=== PATIENT | female | born 1975 | race Two or more races ===

== ENCOUNTER 2024-08-13 09:33 | Outpatient (RCR) | payer BC, SELFPAY | END 2024-09-10 23:59 | disposition home or self-care (01) | LOC: SCTC 09:33 | PROVIDERS: PCP Internal Medicine; Referring Provider Internal Medicine; Visit Provider Nurse Practitioner Family | DX: Z08 Encounter for follow-up examination after completed treatment for malignant neoplasm (principal); Z85.42 Personal history of malignant neoplasm of other parts of uterus; Z90.710 Acquired absence of both cervix and uterus; Z90.722 Acquired absence of ovaries, bilateral; Z92.3 Personal history of irradiation; Z92.21 Personal history of antineoplastic chemotherapy; I10 Essential (primary) hypertension; R91.1 Solitary pulmonary nodule; Z15.01 Genetic susceptibility to malignant neoplasm of breast; Z15.09 Genetic susceptibility to other malignant neoplasm | CPT/HCPCS: 99212; G0463 ==

== ENCOUNTER 2024-10-22 10:32 | Outpatient (RCR) | payer BC, SELFPAY ==
--- NOTE | 2024-10-22 13:01 | CTCFLWUP_ITS ---
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 lisinopril - 10 mg Daily Medications Last Reconciled by Do Covington RN on 10/22/2024 ALLERGIES: No Known Drug Allergies REVIEW OF SYSTEMS: A complete 14-point review of systems was performed and is negative except as noted in interval history. PHYSICAL EXAMINATION: VITAL SIGNS: Temperature?98.8, B/P?123/84, Oxygen?Saturation?98% Weight?200?lbs PAIN: 0 - No pain GENERAL APPEARANCE: Appears well, in no apparent distress, appropriately interactive. HEENT: Normocephalic, no temporal wasting, normal conjunctiva, no scleral icterus, normal hearing, lips without lesions, neck normal range of motion. CARDIOVASCULAR: Not assessed. PULMONARY: Normal respiratory effort, no respiratory distress or use of accessory muscles, speaking in full sentences, no tachypnea. EXTREMITIES: No pedal edema or cyanosis. SKIN: Normal skin appearance. NEUROLOGIC: Alert and oriented x4. PSHYCHIATRIC: Appropriate affect, mood normal, behavior normal, intact thought and speech. 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 S/p total hysterectomy, bilateral salpingectomy, right ovarian cystectomy and retroperitoneal lymphadenectomy and peritoneal washings (10/27/2021) Completed 6 cycles of adju vant carboplatin and Taxol on 05/11/2022. 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 Bilateral breast MRI, benign findings (12/21/2023). Bilateral mammogram screening, left breast negative screening, right breast biopsy recommended, (01/10/2024). Right breast diagnostic mammogram, benign findings, return to routine mammographic surveillance, (01/16/2024). CT chest abdomen and pelvis with contrast showed stable 2 mm pulmonary nodule right lower lobe, no metastatic disease in chest abdomen or pelvis, 02/15/2024. Following up with Dr. Ammy Patino, [employer]CH[employer]IC oncology for discussion of a risk reducing bilateral oophorectomy, 03/26/2024, next follow-up is in September 2024, does not have appointment, will call and schedule self. Patient aware that annual breast MRI and annual mammogram are recommended interventions for cancer screening due to PALB2 associated cancers. Colonoscopy screening every 5 years due to MUTYH gene mutations. Ms. Chavis denies any complaints or concerns during today's visit. No clinical evidence of recurrence. Labs prior to next follow-up including CBC CMP CEA and CA125. GI referral for colonoscopy screening, previous referral History of hypertension Continue following up with PCP for management Will get ct scan chest abdomen and pelvis to evaluate for recurrence ORDERS: Ct chest abdomen and pelvis with contrast Colonoscopy Mammogram RETURN TO CLINIC: 2months BILLING AND COMPLIANCE: I reviewed external records from providers outside my specialty as summarized above. I spent a total of 50 minutes on this patient?s care on the day of their visit excluding time spent related to any billed procedures. This time includes time spent with the patient as well as time spent documenting in the medical record, reviewing patients records and tests, obtaining history, placing orders, communicating with other healthcare professionals, counseling the patient, family or caregiver, and/or care coordination for the diagnoses above. Electronically Signed by: Sylvester Butler MD T: 12:59 PM CC: Onofre?Bindu?, Tamir?Larissa? PCP: Janet Vincent Referring: Janet Vincent This document was completed utilizing speech recognition software. Grammatical errors, random word insertions, pronoun errors, and incomplete sentences are an occasional consequence of this system due to software limitations, ambient noise, and hardware issues. Any formal questions or concerns about the content, text or information contained within the body of this dictation should be directly addressed to the provider for clarification.
== END 2024-11-08 23:59 | disposition home or self-care (01) ==
LOC: SCTC 10:32
PROVIDERS: PCP Internal Medicine; Referring Provider Internal Medicine; Visit Provider Internal Medicine Hematology & Oncology
DX: Z08 Encounter for follow-up examination after completed treatment for malignant neoplasm (principal); Z85.42 Personal history of malignant neoplasm of other parts of uterus; Z90.710 Acquired absence of both cervix and uterus; Z90.722 Acquired absence of ovaries, bilateral; Z92.21 Personal history of antineoplastic chemotherapy; Z92.3 Personal history of irradiation
CPT/HCPCS: 99212; G0463

== ENCOUNTER → 2024-11-07 | Outpatient (CLI) | payer BC, SELFPAY ==
--- NOTE | 2024-11-07 13:30 | XR_ITS ---
Examination: CT chest with intravenous contrast CT abdomen with intravenous contrast CT pelvis with intravenous contrast 2-D coronal and sagittal reconstructions Time of exam: November 07, 2024 1344 hrs. Indications: Diagnosis malignant neoplasm uterus 2021, restaging, history 2 mm pulmonary nodule right lower lobe on CT chest February 15, 2024 CTDI: vol (mGy) : 10.2 DLP: (mGycm): 732 Technique: Multiple axial images of the chest, abdomen and pelvis with intravenous contrast, 3.0 mm slice thickness. Images obtained post intravenous injection Isovue 370 60 cc. 2-D sagittal and coronal reconstructions. Low dose protocols were performed. One or more of the following dose reduction techniques were used; automated exposure control, adjustment of the mA and/or KV according to patient size, use of iterative reconstruction technique. Findings: No thoracic aortic aneurysm dilatation Pulmonary artery segments are not enlarged. No paratracheal tracheobronchial or bronchopulmonary adenopathy Pulmonary nodule posterior right lung measures 3.8 mm compared to 2.8 mm on February 15, 2024 No new pulmonary nodules No pneumonia or pulmonary edema Fatty infiltration throughout the liver no focal liver or splenic lesions No gallstones No pancreatic or adrenal mass No renal or ureteral calculi, no hydronephrosis Normal appendix No bowel obstruction No abdominal or pelvic lymphadenopathy Urinary bladder intact Moderate osteopenia Impression: Pulmonary nodule posterior right lung measures 3.8 mm compared to 2.8 mm on February 15, 2024, no new pulmonary nodules With this study as baseline suggest continued 6 month follow-up CT chest without contrast No interval metastatic disease in the abdomen or pelvis
== END | disposition home or self-care (01) ==
LOC: CCTX 13:23
PROVIDERS: PCP Internal Medicine; Referring Provider Internal Medicine Hematology & Oncology; Visit Provider Internal Medicine Hematology & Oncology
DX: R91.1 Solitary pulmonary nodule (principal); C55 Malignant neoplasm of uterus, part unspecified
CPT/HCPCS: 71260; 74177; A4649; Q9967

== ENCOUNTER → 2024-11-15 | Outpatient (CLI) | payer BC, SELFPAY ==
--- NOTE | 2024-11-15 13:04 | XR_ITS ---
Examination: PA lateral chest 2 views TECHNIQUE: Upright PA lateral chest 2 views Exam date and time: November 15, 2024 1318 hours INDICATIONS: Preop FINDINGS: Normal heart size. Lungs are clear. The osseous structures are intact IMPRESSION: No active disease
[2024-11-15 13:09] LABS: Basophils % (Auto) 0 % (0-2.5); Eosinophils # (Auto) 0.1 Thou/mm3 (0.0-0.5); Eosinophils % (Auto) 1 % (0-10); Hematocrit 40.9 % (36.0-46.0); Hemoglobin 13.7 g/dL (12.0-16.0); Immature Granulocytes % (Auto) 0 % (0-0); Immature Granulocytes Auto 0.01 Thou/mm3 (0.00-0.00); Lymphocytes # (Auto) 1.7 Thou/mm3 (1.0-4.8); Lymphocytes % (Auto) 28 % (10-50); Mean Corpuscular HGB Conc 33.5 g/dl (31.0-37.0); Mean Corpuscular Hemoglobin 28.7 pg (25.0-35.0); Mean Corpuscular Volume 86 fL (80-100); Monocytes # (Auto) 0.3 Thou/mm3 (0.0-0.8); Monocytes % (Auto) 6 % (0-12); Neutrophils # (Auto) 3.9 Thou/mm3 (1.8-7.7); Neutrophils % (Auto) 65 % (37-80); Nucleated Red Blood Cell % 0 /100 WBC (0); Platelet Count 200 Thou/mm3 (140-440); RDW Standard Deviation 41.3 fL (36.4-46.3); Red Blood Count 4.77 Miln/mm3 (4.00-5.20)
[2024-11-15 13:23] LABS: Glucose Estimated Average 114 mg/dL (80-131); Hemoglobin A1C 5.6 % Hgb (4.8-6.0)
[2024-11-15 13:31] LABS: Alanine Aminotransferase 28 U/L (10-49); Albumin, Serum 4.2 gm/dL (3.5-5.0); Albumin/Globulin Ratio 1.5 (1.2-2.2); Alkaline Phosphatase 87 U/L (46-116); Anion Gap 6 (7-16); Aspartate Amino Transferase 21 U/L (0-34); BUN/Creatinine Ratio 21 Ratio (12-20); Bilirubin,Total 0.6 mg/dL (0.3-1.2); Blood Urea Nitrogen 15 mg/dL (9-23); Calcium 9.6 mg/dL (8.3-10.6); Calcium (Corrected) 9.6 mg/dL (8.5-10.1); Carbon Dioxide 30.8 mMol/L (20.0-31.0); Chloride 105 mMol/L (98-107); Creatinine (Component) 0.7 mg/dL (0.6-1.3); Globulin 2.8 gm/dL (2.3-3.5); Glucose 96 mg/dL (74-106); Osmolality,Calculated 283 (275-295); Potassium 4.2 mMol/L (3.4-5.1); Sodium 142 mMol/L (136-145); eGFR > 60 See Note
--- NOTE | 2024-11-15 13:40 | EKG_ITS ---
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
== END | disposition home or self-care (01) ==
PROVIDERS: PCP Nurse Practitioner Family; Referring Provider Nurse Practitioner Family; Visit Provider Radiology Diagnostic Radiology
DX: Z01.818 Encounter for other preprocedural examination (principal)
CPT/HCPCS: 36415; 71046; 80053; 83036; 85025; 86900; 86901; 93005

== ENCOUNTER → 2024-11-19 | Outpatient (CLI) | payer BC, SELFPAY ==
--- NOTE | 2024-11-19 10:15 | XR_ITS ---
Examination: Diagnostic digital mammography, bilateral Computer aided detection 3-D breast Tomosynthesis, bilateral Date and time of exam: 11/19/2024, 10:09 AM Comparisons: 2021 through January 2024 Indications:Surveillance Technique: Nonmagnified MLO, CC views of the breasts to been obtained, reconstructed from 3-D Tomosynthesis images. R2 computer aided detection program utilized for evaluation of suspicious masses and/or abnormal calcifications. 3-D Tomosynthesis images obtained. Findings: There are scattered areas of fibroglandular density. No evidence of abnormal masses or suspicious calcifications. Stable benign-appearing calcifications medial right breast Impression: BI-RADS category 2: Benign findings Recommend 1 year follow-up mammogram
== END | disposition home or self-care (01) ==
LOC: CDIM 09:54
PROVIDERS: Referring Provider Internal Medicine Hematology & Oncology; Visit Provider Internal Medicine Hematology & Oncology
DX: R92.323 Mammographic fibroglandular density, bilateral breasts (principal); R92.1 Mammographic calcification found on diagnostic imaging of breast; C55 Malignant neoplasm of uterus, part unspecified
CPT/HCPCS: 77062; 77066; G0279

== ENCOUNTER 2024-12-04 08:24 | Outpatient (RCR) | payer BC, SELFPAY ==
--- NOTE | 2024-12-04 09:12 | CTCFLWUP_ITS ---
Shemar Machado [facility] [address] [place], [place] [address] FOLLOW-UP NOTE Date: 12/04/2024 MR#: [id number] Name: ELISE CHAVIS : 1975 Dx: C55 Malignant neoplasm of uterus, part unspecified Identification. Patient with stage III C2 (pT1a loss of expression ER/FL receptor positive grade 1 endometrial CA uterus. Had total hysterectomy bilateral salpingectomy l right ovarian cystectomy retroperitoneal lymphadenectomy and peritoneal washings 10/27/2021. 6 cycles of adjuvant chemo carboplatin Taxol 01/26/2022 through 05/11/2022. XRT to pelvis 07/06/2022 through 06/17/2022. 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 CT chest abdomen pelvis 11/07/2024 right posterior lung nodule 3.8 mm compared to 2.8 mm of February 15, 2024. 6-month follow-up CT chest recommended. Mammogram 11/19/2024 BI-RADS category two 1 year follow-up recommended. CEA 1.1 CA125 5.4 on 10/15/2024 Patient had pelvic last month performed by MACHINE WORKER onc which was unremarkable according to patient. A#1. Stage III C2 endometrial carcinoma uterus with loss of expression. PALB2 as well as MUTYH past mutations positive. A#2. Total hysterectomy bilateral salpingectomy right ovarian cystectomy retroperitoneal lymphadenectomy peritoneal washings 10/27/2021. [facility] A#3. Postop chemoradiation completed 2021 [facility] A#4. Radiographically, biochemically and on pelvic exam performed last month in [place] no sign of recurrence thus far. A#5. Scheduled for prophylactic oophorectomy next month in [place]. A#6, Has follow-ups with MELISSA Manuel and Dr. Butler. A#7. I will see her again in 6 months. Cc:*Janet Vincent MD . Electronically signed by: Tamir Dias M.D. 12/04/2024 9:09 AM
== END 2024-12-09 23:59 | disposition home or self-care (01) ==
LOC: SCTC 08:24
PROVIDERS: PCP Internal Medicine; Referring Provider Radiology Therapeutic Radiology; Visit Provider Radiology Therapeutic Radiology
DX: C54.1 Malignant neoplasm of endometrium (principal); Z90.710 Acquired absence of both cervix and uterus; Z90.722 Acquired absence of ovaries, bilateral; Z92.21 Personal history of antineoplastic chemotherapy; Z92.3 Personal history of irradiation; Z15.09 Genetic susceptibility to other malignant neoplasm
CPT/HCPCS: 99212; G0463

== ENCOUNTER 2025-01-08 11:01 | Outpatient (RCR) | payer BC, SELFPAY ==
--- NOTE | 2025-01-14 11:14 | CTCFLWUP_ITS ---
Patient: ELISE CHAVIS : 1975 Page 2 of 2 FOLLOW UP NOTE DATE OF SERVICE: 01/08/2025 NAME: ELISE CHAVIS ACCOUNT: [id number] : 1975 AGE: 49 INTERVAL HISTORY: Visit summary Jordan Ramirez, a female with stage 2, C2, loss of expression, ERP receptor positive, grade one endometrial cancer, presented for follow-up after unsuccessful robotic ovarian removal surgery. Her history includes total hysterectomy, bilateral salpingo-oophorectomy, right ovarian cystadenectomy, retroperitoneal lymphadenectomy, peritoneal washing, and 6 cycles of TCE with radiation therapy in 2021. A small lung nodule was identified on CT scan. Management plan includes Fernando testing for circulating cancer cells, PET-CT scan in April to evaluate the lung nodule and assess for metastatic disease, colonoscopy for cancer screening, and follow-up after her breast surgical consultation in February. Chief Complaint Follow-up for endometrial cancer treatment, recent robotic surgery for ovaries, tiny lung nodule found on CT scan History of Present Illness Jordan Ramirez is a patient with a history of stage 2, C2, loss of expression, ERP receptor positive, grade one endometrial cancer, presenting for follow-up after recent robotic surgery for ovarian removal and to discuss ongoing cancer management. The patient reports having undergone robotic surgery for ovary removal last week. However, Dr. Espinal was unable to remove the ovaries due to the tissue being too hard, possibly from previous radiation therapy. The patient mentions that there are currently no signs of cancer. She has a pre-operative appointment scheduled in two weeks, where Dr. Espinal will provide further information about the possibility of ovary removal. The patient also discusses her treatment history, including a total hysterectomy, bilateral salpingo-oophorectomy, right ovarian cystadenectomy, retroperitoneal lymphadenectomy, and peritoneal washing. In 2021, she completed 6 cycles of TCE and radiation therapy. She notes that her left ovary is the only one remaining inside, as the right ovary had a cyst removed previously. The patient expresses concern about a bad gene and the need for a colonoscopy. Additionally, the patient mentions an upcoming permit in February with a surgeon for her breast, as well as a consultation scheduled for late February. She is aware of a small lung nodule that was discovered on a previous CT scan, which could be related to pneumonia or a cough. The patient understands that a PET scan is planned for April to assess her entire body for any signs of cancer. Medical History - Stage 2, C2, loss of expression, ERP receptor positive, grade one endometrial cancer - Small lung nodule Surgical History - Total hysterectomy, bilateral salpingo-oophorectomy, right ovarian cystadenectomy, retroperitoneal lymphadenectomy, and peritoneal washing for endometrial cancer - Robotic surgery for ovaries (last week) - Right ovarian cyst removal (prior to cancer diagnosis) Medications and Supplements - TCE - 6 cycles in 2021 Laboratory, Imaging, and Diagnostic Test Results - CT scan: Small lung nodule detected - PET-CT scan: Pending (scheduled for April) ONCOLOGY HISTORY: DIAGNOSIS: Malignant neoplasm of uterus, part unspecified [ICD10] C55 Stage III C2 (pT1a, pN2a), MSH?6 loss of expression, ER positive, VA positive, 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 lisinopril - 10 mg Daily Medications Last Reconciled by Sweetie Sanon MA on 01/08/2025 ALLERGIES: No Known Drug Allergies REVIEW OF SYSTEMS: A complete 14-point review of systems was performed and is negative except as noted in interval history. PHYSICAL EXAMINATION: VITAL SIGNS: Temperature?99.3, B/P?125/85, Oxygen?Saturation?97% PAIN: 0 - No pain GENERAL APPEARANCE: Appears well, in no apparent distress, appropriately interactive. HEENT: Normocephalic, no temporal wasting, normal conjunctiva, no scleral icterus, normal hearing, lips without lesions, neck normal range of motion. CARDIOVASCULAR: Not assessed. PULMONARY: Normal respiratory effort, no respiratory distress or use of accessory muscles, speaking in full sentences, no tachypnea. EXTREMITIES: No pedal edema or cyanosis. SKIN: Normal skin appearance. NEUROLOGIC: Alert and oriented x4. PSHYCHIATRIC: Appropriate affect, mood normal, behavior normal, intact thought and speech. LABORATORY DATA: I have personally reviewed and interpreted each of the patient?s relevant lab tests, abnormal findings are below: Date 08/30/22 11/15/24 ??WHITE?BLOOD?COUNT?(Thou/mm3) 4.3 6.0 ??RED?BLOOD?COUNT?(Miln/mm3) 4.15 4.77 ??HEMOGLOBIN?(gm/dl) 12.4 13.7 ??HEMATOCRIT?(%) 37.1 40.9 ??PLATELET?COUNT?(Thou/mm3) 157 200 ??NEUTROPHILS?%,?AUTO?(%) 72 65 ??LYMPH?%,?AUTO?(%) 18 28 ??NEUTROPHILS,?AUTO?(Thou/mm3) 3.1 3.9 ??GLUCOSE,RANDOM?(mg/dL) 131?H 96 ??BLOOD?UREA?NITROGEN?(mg/dL) 14 15 ??CREATININE?(mg/dL) 0.70 0.70 ??SODIUM?(mmol/L) 141 142 ??POTASSIUM?(mmol/L) 3.6 4.2 ??CHLORIDE?(mmol/L) 104 105 ??CrCl?(CandG)?(ml/min) 147.32 107.83 ??AST/SGOT?(Unit/L) 38?H 21 ??ALT/SGPT?(Unit/L) 60?H 28 ??ALKALINE?PHOSPHATASE?(Unit/L) 71 87 ??BILIRUBIN,?TOTAL?(mg/dL) 0.4 0.6 ??PROTEIN?TOTAL?(gm/dl) 7.3 7.0 ??ALBUMIN,?SERUM?(gm/dl) 4.4 4.2 ??GLOBULIN?(gm/dl) 2.9 2.8 ??ALBUMIN/GLOBULIN?RATIO 1.5 1.5 ??CALCIUM,?SERUM?(mg/dL) 9.6 9.6 ??CALCIUM?SERUM?(CORRECTED)?(mg/dL) 9.6 9.6 ASSESSMENT/PLAN: Stage III C2 (pT1a, pN2a), MSH?6 loss of expression, ER positive, VA positive, 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 S/p total hysterectomy, bilateral salpingectomy, right ovarian cystectomy and retroperitoneal lymphadenectomy and peritoneal washings (10/27/2021) Completed 6 cycles of adjuv ant carboplatin and Taxol on 05/11/2022. 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 Bilateral breast MRI, benign findings (12/21/2023). Bilateral mammogram screening, left breast negative screening, right breast biopsy recommended, (01/10/2024). Right breast diagnostic mammogram, benign findings, return to routine mammographic surveillance, (01/16/2024). CT chest abdomen and pelvis with contrast showed stable 2 mm pulmonary nodule right lower lobe, no metastatic disease in chest abdomen or pelvis, 02/15/2024. Following up with Dr. 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 Patient aware that annual breast MRI and annual mammogram are recommended interventions for cancer screening due to PALB2 associated cancers. Colonoscopy screening every 5 years due to MUTYH gene mutations. Ms. Chavis denies any complaints or concerns during today's visit. No clinical evidence of recurrence. Labs prior to next follow-up including CBC CMP CEA and CA125. GI referral for colonoscopy screening, previous referral History of hypertension Continue following up with PCP for management Jordan ramirez, female patient with stage 2, C2, loss of expression, ERP receptor positive, grade one endometrial cancer, status post total hysterectomy, bilateral salpingo-oophorectomy, right ovarian cystadenectomy, retroperitoneal lymphadenectomy, peritoneal washing, and 6 cycles of TCE and radiation therapy in 2021. Stage 2, C2, loss of expression, ERP receptor positive, grade one endometrial cancer Assessment: Patient has a history of stage 2, C2, loss of expression, ERP receptor positive, grade one endometrial cancer. She underwent total hysterectomy, bilateral salpingo-oophorectomy, right ovarian cystadenectomy, retroperitoneal lymphadenectomy, and peritoneal washing. In 2021, she completed 6 cycles of TCE and radiation therapy. Recent robotic surgery for ovary removal was unsuccessful due to tissue hardness from radiation, with no signs of cancer reported. A small lung nodule was identified on a previous CT scan, which requires further evaluation. Plan: - Order PET-CT scan in April for full body evaluation and to assess the lung nodule for potential metastatic disease - Perform Fernando testing today to check for circulating cancer cells - Follow up with patient after PET scan results are available - Await surgical consult results regarding ovary removal feasibility Lung nodule Assessment: A small lung nodule was identified on a previous CT scan ordered by Dr. Dias. The etiology is uncertain, potentially related to pneumonia or cough, but requires further evaluation to rule out metastatic disease. Plan: - PET-CT scan ordered for April to evaluate the lung nodule and assess for metastatic disease (as mentioned in the previous problem) Genetic predisposition for cancer Assessment: Patient mentioned having a bad gene, suggesting a potential genetic predisposition for cancer. This warrants further screening and preventive measures. Plan: - Recommend scheduling a colonoscopy for cancer screening Breast concern Assessment: Patient has an upcoming surgical consultation for a breast-related issue in February. Plan: - Patient to attend scheduled surgical consultation for breast on February 28-somethingORDERS: Order # Description [id number] Initial PET/CT of Skull to Mid-Thigh [id number] RETURN TO CLINIC: RTC in April BILLING AND COMPLIANCE: I reviewed external records from providers outside my specialty as summarized above. I spent a total of 50 minutes on this patient?s care on the day of their visit excluding time spent related to any billed procedures. This time includes time spent with the patient as well as time spent documenting in the medical record, reviewing patients records and tests, obtaining history, placing orders, communicating with other healthcare professionals, counseling the patient, family or caregiver, and/or care coordination for the diagnoses above. Electronically Signed by: Sylvester Butler MD T: 11:12 AM CC: Onofre?Bindu,?, Tamir?Larissa? PCP: Janet Vincent Referring: Janet Vincent This document was completed utilizing speech recognition software. Grammatical errors, random word insertions, pronoun errors, and incomplete sentences are an occasional consequence of this system due to software limitations, ambient noise, and hardware issues. Any formal questions or concerns about the content, text or information contained within the body of this dictation should be directly addressed to the provider for clarification.
== END 2025-01-08 23:59 | disposition home or self-care (01) ==
LOC: SCTC 11:01
PROVIDERS: PCP Internal Medicine; Referring Provider Internal Medicine; Visit Provider Internal Medicine Hematology & Oncology
DX: C54.1 Malignant neoplasm of endometrium (principal); R91.1 Solitary pulmonary nodule; Z90.710 Acquired absence of both cervix and uterus; Z92.3 Personal history of irradiation
CPT/HCPCS: 99212; G0463

== ENCOUNTER 2025-01-28 08:34 | Outpatient (RCR) | payer BC, SELFPAY | END 2025-02-08 23:59 | disposition home or self-care (01) | LOC: SCTC 08:34 | PROVIDERS: PCP Internal Medicine; Referring Provider Internal Medicine; Visit Provider Internal Medicine Hematology & Oncology | DX: C54.1 Malignant neoplasm of endometrium (principal); Z90.710 Acquired absence of both cervix and uterus; Z90.722 Acquired absence of ovaries, bilateral; R91.1 Solitary pulmonary nodule | CPT/HCPCS: 36591 ==

== ENCOUNTER 2025-04-15 10:03 | Outpatient (RCR) | payer BC, SELFPAY ==
--- NOTE | 2025-04-21 01:20 | CTCFLWUP_ITS ---
Patient: ELISE CHAVIS : 1975 Page 3 of 4 FOLLOW UP NOTE DATE OF SERVICE: 04/15/2025 NAME: ELISE CHAVIS ACCOUNT: [id number] : 1975 AGE: 49 INTERVAL HISTORY: Visit summary Jordan Resendez, a female with stage 2, C2, loss of expression, ERP receptor positive, grade one endometrial cancer, presented for follow-up after unsuccessful robotic ovarian removal surgery. Her history includes total hysterectomy, bilateral salpingo-oophorectomy, right ovarian cystadenectomy, retroperitoneal lymphadenectomy, peritoneal washing, and 6 cycles of TCE with radiation therapy in 2021. A small lung nodule was identified on CT scan Ora testing came back negative PET-CT scan in April to evaluate the lung nodule and assess for metastatic disease, colonoscopy for cancer screening, and follow-up after her breast surgical consultation pending Chief Complaint Follow-up for endometrial cancer treatment, recent robotic surgery for ovaries, tiny lung nodule found on CT scan History of Present Illness Jordan Resendez is a patient with a history of stage 2, C2, loss of expression, ERP receptor positive, grade one endometrial cancer, presenting for follow-up after recent robotic surgery for ovarian removal and to discuss ongoing cancer management. The patient reports having undergone robotic surgery for ovary removal last week. However, Dr. Espinal was unable to remove the ovaries due to the tissue being too hard, possibly from previous radiation therapy. The patient mentions that there are currently no signs of cancer. She has a pre-operative appointment scheduled in two weeks, where Dr. Espinal will provide further information about the possibility of ovary removal. The patient also discusses her treatment history, including a total hysterectomy, bilateral salpingo-oophorectomy, right ovarian cystadenectomy, retroperitoneal lymphadenectomy, and peritoneal washing. In 2021, she completed 6 cycles of TCE and radiation therapy. She notes that her left ovary is the only one remaining inside, as the right ovary had a cyst removed previously. The patient expresses concern about a bad gene and the need for a colonoscopy. Additionally, the patient mentions an upcoming permit in February with a surgeon for her breast, as well as a consultation scheduled for late February. She is aware of a small lung nodule that was discovered on a previous CT scan, which could be related to pneumonia or a cough. The patient understands that a PET scan is planned for April to assess her entire body for any signs of cancer. Medical History - Stage 2, C2, loss of expression, ERP receptor positive, grade one endometrial cancer - Small lung nodule Surgical History - Total hysterectomy, bilateral salpingo-oophorectomy, right ovarian cystadenectomy, retroperitoneal lymphadenectomy, and peritoneal washing for endometrial cancer - Robotic surgery for ovaries (last week) - Right ovarian cyst removal (prior to cancer diagnosis) Medications and Supplements - TCE - 6 cycles in 2021 Laboratory, Imaging, and Diagnostic Test Results - CT scan: Small lung nodule detected - PET-CT scan: Pending (scheduled for April) ONCOLOGY HISTORY:?[facility] Hx? 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 DATE OF DIAGNOSIS: 09/21/2021 STAGE/TNM: TREATMENT HISTORY: Care?Plan Start?Date Cycle Day Intent CARBOplatin?AUC?6;?PACLitaxel?175 01/26/2022 1 21 Curative?(adjuvant) VENOfer?200mg?IV?wkly?for?10?weeks 02/16/2022 1 70 Palliative Mg?sul?2?gr 05/11/2022 1 1 Palliative HISTORY OF PRESENT ILLNESS: OTHER MEDICAL HISTORY/CONDITIONS: FAMILY HISTORY: ?[facility] Family Hx? 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 MEDICATIONS: 1. lisinopril - 10 mg Daily?Palabra Meds? Medications Last Reconciled by Sweetie Monet MD on 04/15/2025 ALLERGIES: No Known Drug Allergies REVIEW OF SYSTEMS: A complete 14-point review of systems was performed and is negative except as noted in interval history. PHYSICAL EXAMINATION:?[facility] PE? VITAL SIGNS: Temperature?97.6, B/P?137/89, Oxygen?Saturation?97% Weight?208?lbs PAIN: 0 - No pain ECOG Performance Status: 0 - Asymptomatic and fully active GENERAL APPEARANCE: Appears well, in no apparent distress, appropriately interactive. HEENT: Normocephalic, no temporal wasting, normal conjunctiva, no scleral icterus, normal hearing, lips without lesions, neck normal range of motion. CARDIOVASCULAR: Not assessed. PULMONARY: Normal respiratory effort, no respiratory distress or use of accessory muscles, speaking in full sentences, no tachypnea. EXTREMITIES: No pedal edema or cyanosis. SKIN: Normal skin appearance. NEUROLOGIC: Alert and oriented x4. PSHYCHIATRIC: Appropriate affect, mood normal, behavior normal, intact thought and speech. LABORATORY DATA: I have personally reviewed and interpreted each of the patient?s relevant lab tests, abnormal findings are below: Date 08/30/22 11/15/24 ??WHITE?BLOOD?COUNT?(Thou/mm3) 4.3 6.0 ??RED?BLOOD?COUNT?(Miln/mm3) 4.15 4.77 ??HEMOGLOBIN?(gm/dl) 12.4 13.7 ??HEMATOCRIT?(%) 37.1 40.9 ??PLATELET?COUNT?(Thou/mm3) 157 200 ??NEUTROPHILS?%,?AUTO?(%) 72 65 ??LYMPH?%,?AUTO?(%) 18 28 ??NEUTROPHILS,?AUTO?(Thou/mm3) 3.1 3.9 ??GLUCOSE,RANDOM?(mg/dL) 131?H 96 ??BLOOD?UREA?NITROGEN?(mg/dL) 14 15 ??CREATININE?(mg/dL) 0.70 0.70 ??SODIUM?(mmol/L) 141 142 ??POTASSIUM?(mmol/L) 3.6 4.2 ??CHLORIDE?(mmol/L) 104 105 ??CrCl?(CandG)?(ml/min) 147.32 107.83 ??AST/SGOT?(Unit/L) 38?H 21 ??ALT/SGPT?(Unit/L) 60?H 28 ??ALKALINE?PHOSPHATASE?(Unit/L) 71 87 ??BILIRUBIN,?TOTAL?(mg/dL) 0.4 0.6 ??PROTEIN?TOTAL?(gm/dl) 7.3 7.0 ??ALBUMIN,?SERUM?(gm/dl) 4.4 4.2 ??GLOBULIN?(gm/dl) 2.9 2.8 ??ALBUMIN/GLOBULIN?RATIO 1.5 1.5 ??CALCIUM,?SERUM?(mg/dL) 9.6 9.6 ??CALCIUM?SERUM?(CORRECTED)?(mg/dL) 9.6 9.6 ASSESSMENT/PLAN:?Mary Butler Assessment/Plan? 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 S/p total hysterectomy, bilateral salpingectomy, right ovarian cystectomy and retroperitoneal lymphadenectomy and peritoneal washings (10/27/2021) Completed 6 cycles of adjuv ant carboplatin and Taxol on 05/11/2022. 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 Bilateral breast MRI, benign findings (12/21/2023). Bilateral mammogram screening, left breast negative screening, right breast biopsy recommended, (01/10/2024). Right breast diagnostic mammogram, benign findings, return to routine mammographic surveillance, (01/16/2024). CT chest abdomen and pelvis with contrast showed stable 2 mm pulmonary nodule right lower lobe, no metastatic disease in chest abdomen or pelvis, 02/15/2024. Following up with Dr. Ammy Patino, [employer] oncology and completed bilateral oophorectomy Patient aware that annual breast MRI and annual mammogram are recommended interventions for cancer screening due to PALB2 associated cancers. Colonoscopy screening every 5 years due to MUTYH gene mutations. Ms. Chavis denies any complaints or concerns during today's visit. No clinical evidence of recurrence. Patient is now status post total hysterectomy, bilateral salpingo-oophorectomy, right ovarian cystadenectomy, retroperitoneal lymphadenectomy, peritoneal washing, and 6 cycles of TCE and radiation therapy in 2021. PET CT scan is pending Ora testing is negative Advised to keep appointment with GI for EGD and colonoscopy Breast surgeon for possible bilateral mastectomy and reconstruction RETURN TO CLINIC: I reviewed the diagnosis, prognosis, and recommended treatment/procedure options with the patient (and/or their legal medical center representative), including the potential benefits, risks, side effects and alternative therapies. We also discussed the option of no treatment and the possibility of clinical trial participation, if applicable. All questions were addressed, and they demonstrated understanding. They provided informed consent to proceed with the proposed plan of care. BILLING AND COMPLIANCE: I reviewed external records from providers outside my specialty as summarized above. I spent a total of 50 minutes on this patient?s care on the day of their visit excluding time spent related to any billed procedures. This time includes time spent with the patient as well as time spent documenting in the medical record, reviewing patients records and tests, obtaining history, placing orders, communicating with other healthcare professionals, counseling the patient, family or caregiver, and/or care coordination for the diagnoses above. Electronically Signed by: Sylvester Butler MD T: 1:18 AM CC: Onorfe?Bindu?, Tamir?Larissa? PCP: Janet Vincent Referring: Janet Vincent This document was completed utilizing speech recognition software. Grammatical errors, random word insertions, pronoun errors, and incomplete sentences are an occasional consequence of this system due to software limitations, ambient noise, and hardware issues. Any formal questions or concerns about the content, text or information contained within the body of this dictation should be directly addressed to the provider for clarification.
== END 2025-05-11 23:59 | disposition home or self-care (01) ==
LOC: SCTC 10:03
PROVIDERS: PCP Internal Medicine; Referring Provider Internal Medicine; Visit Provider Internal Medicine Hematology & Oncology
DX: C54.1 Malignant neoplasm of endometrium (principal); Z90.710 Acquired absence of both cervix and uterus; Z90.722 Acquired absence of ovaries, bilateral; Z92.21 Personal history of antineoplastic chemotherapy; Z92.3 Personal history of irradiation; Z15.09 Genetic susceptibility to other malignant neoplasm
CPT/HCPCS: 99212; G0463

== ENCOUNTER → 2025-04-29 | Outpatient (CLI) | payer BC, SELFPAY ==
--- NOTE | 2025-04-29 10:15 | XR_ITS ---
EXAMINATION: PET/CT FUSION SKULL TO THIGH EXAM DATE AND TIME: April 29, 2025 1113 hours, comparison CT chest abdomen pelvis November 07, 2024, CT chest abdomen pelvis February 15, 2024 INDICATIONS: Diagnosis uterine cancer restaging post treatment, 3.8 mm pulmonary nodule posterior right lung on CT chest November 07, 2024 CTDI:vol (mGy) 9.78 DLP: (mGycm) 893.06 PROCEDURE: 15.9 mCi FDG was administered intravenously To allow for distribution and uptake of radiotracer, the patient was allowed to rest quietly in a shielded room. Imaging was performed on an integrated 16-slice PET/CT scanner, with scanning from the skull base to the mid thigh. Serum blood glucose at the time of the injection was measured 103 mg/dL. CT scanning was performed without oral or intravenous contrast material. FINDINGS: Head and Neck: There is no sade hypermetabolism in the neck. The visualized portions of the brain are normal in appearance on CT. Chest: 3 mm non hypermetabolic pulmonary nodule right lower lobe Abdomen and Pelvis: There is no sade hypermetabolism in retroperitoneal or pelvic chains. The spleen is normal in size and FDG avidity. Musculoskeletal: Marrow uptake is within normal range. IMPRESSION: 3 mm non hypermetabolic pulmonary nodule right lower lobe, suggest continued 6 month follow-up CT chest without contrast
== END | disposition home or self-care (01) ==
PROVIDERS: Referring Provider Internal Medicine Hematology & Oncology; Visit Provider Internal Medicine Hematology & Oncology
DX: R91.1 Solitary pulmonary nodule (principal); C55 Malignant neoplasm of uterus, part unspecified
CPT/HCPCS: 78815; A9552

== ENCOUNTER 2025-06-03 09:03 | Outpatient (RCR) | payer BC, SELFPAY ==
--- NOTE | 2025-05-27 14:54 | CTCFLWUP_ITS ---
Patient: ELISE CHAVIS : 1975 Page 3 of 5 FOLLOW UP NOTE DATE OF SERVICE: 05/27/2025 NAME: ELISE CHAVIS ACCOUNT: [id number] : 1975 AGE: 49 INTERVAL HISTORY: Visit summary Jordan Resendez, a female with stage 2, C2, loss of expression, ERP receptor positive, grade one endometrial cancer, presented for follow-up after unsuccessful robotic ovarian removal surgery. Her history includes total hysterectomy, bilateral salpingo-oophorectomy, right ovarian cystadenectomy, retroperitoneal lymphadenectomy, peritoneal washing, and 6 cycles of TCE with radiation therapy in 2021. A small lung nodule has been stable since 2022. Fernando and pet negative . Patient was seen by Dr. Scott for colonoscopy but patient could not complete the procedure as was told that clinic did not accept [employer] [place] Given.to . Patient also have not seen anybody for bilateral mastectomy with reconstruction Chief Complaint Follow-up for endometrial cancer treatment, recent robotic surgery for ovaries, millimeter nodule on the lung is stable History of Present Illness Jordan Resendez is a patient with a history of stage 2, C2, loss of expression, ERP receptor positive, grade one endometrial cancer, presenting for follow-up after recent robotic surgery for ovarian removal and to discuss ongoing cancer management. The patient reports having undergone robotic surgery for ovary removal last week. However, Dr. Espinal was unable to remove the ovaries due to the tissue being too hard, possibly from previous radiation therapy. The patient mentions that there are currently no signs of cancer. She has a pre-operative appointment scheduled in two weeks, where Dr. Espinal will provide further information about the possibility of ovary removal. The patient also discusses her treatment history, including a total hysterectomy, bilateral salpingo-oophorectomy, right ovarian cystadenectomy, retroperitoneal lymphadenectomy, and peritoneal washing. In 2021, she completed 6 cycles of TCE and radiation therapy. She notes that her left ovary is the only one remaining inside, as the right ovary had a cyst removed previously. The patient expresses concern about a bad gene and the need for a colonoscopy. Additionally, the patient mentions an upcoming permit in February with a surgeon for her breast, as well as a consultation scheduled for late February. She is aware of a small lung nodule that was discovered on a previous CT scan, which could be related to pneumonia or a cough. The patient understands that a PET scan is planned for April to assess her entire body for any signs of cancer. Medical History - Stage 2, C2, loss of expression, ERP receptor positive, grade one endometrial cancer - Small lung nodule Surgical History - Total hysterectomy, bilateral salpingo-oophorectomy, right ovarian cystadenectomy, retroperitoneal lymphadenectomy, and peritoneal washing for endometrial cancer - Robotic surgery for ovaries (last week) - Right ovarian cyst removal (prior to cancer diagnosis) Medications and Supplements - TCE - 6 cycles in 2021 Laboratory, Imaging, and Diagnostic Test Results - CT scan: Small lung nodule detected - PET-CT scan: Pending (scheduled for April) ONCOLOGY HISTORY: DIAGNOSIS: Malignant neoplasm of uterus, part unspecified [ICD10] C55 Stage III C2 (pT1a, pN2a), MSH?6 loss of expression, ER positive, VA positive, 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 lisinopril - 10 mg Daily Medications Last Reconciled by Sweetie Sanon MA on 05/27/2025 ALLERGIES: No Known Drug Allergies REVIEW OF SYSTEMS: A complete 14-point review of systems was performed and is negative except as noted in interval history. PHYSICAL EXAMINATION: VITAL SIGNS: PAIN: 0 - No pain ECOG Performance Status: 0 - Asymptomatic and fully active GENERAL APPEARANCE: Appears well, in no apparent distress, appropriately interactive. HEENT: Normocephalic, no temporal wasting, normal conjunctiva, no scleral icterus, normal hearing, lips without lesions, neck normal range of motion. CARDIOVASCULAR: Not assessed. PULMONARY: Normal respiratory effort, no respiratory distress or use of accessory muscles, speaking in full sentences, no tachypnea. EXTREMITIES: No pedal edema or cyanosis. SKIN: Normal skin appearance. NEUROLOGIC: Alert and oriented x4. PSHYCHIATRIC: Appropriate affect, mood normal, behavior normal, intact thought and speech. LABORATORY DATA: I have personally reviewed and interpreted each of the patient?s relevant lab tests, abnormal findings are below: Date 08/30/22 11/15/24 ??WHITE?BLOOD?COUNT?(Thou/mm3) ? 6.0 ??RED?BLOOD?COUNT?(Miln/mm3) ? 4.77 ??HEMOGLOBIN?(gm/dl) ? 13.7 ??HEMATOCRIT?(%) ? 40.9 ??PLATELET?COUNT?(Thou/mm3) ? 200 ??NEUTROPHILS?%,?AUTO?(%) ? 65 ??LYMPH?%,?AUTO?(%) ? 28 ??NEUTROPHILS,?AUTO?(Thou/mm3) ? 3.9 ??GLUCOSE,RANDOM?(mg/dL) 131?H 96 ??BLOOD?UREA?NITROGEN?(mg/dL) 14 15 ??CREATININE?(mg/dL) 0.70 0.70 ??SODIUM?(mmol/L) 141 142 ??POTASSIUM?(mmol/L) 3.6 4.2 ??CHLORIDE?(mmol/L) 104 105 ??CrCl?(CandG)?(ml/min) 147.32 107.83 ??AST/SGOT?(Unit/L) 38?H 21 ??ALT/SGPT?(Unit/L) 60?H 28 ??ALKALINE?PHOSPHATASE?(Unit/L) 71 87 ??BILIRUBIN,?TOTAL?(mg/dL) 0.4 0.6 ??PROTEIN?TOTAL?(gm/dl) 7.3 7.0 ??ALBUMIN,?SERUM?(gm/dl) 4.4 4.2 ??GLOBULIN?(gm/dl) 2.9 2.8 ??ALBUMIN/GLOBULIN?RATIO 1.5 1.5 ??CALCIUM,?SERUM?(mg/dL) 9.6 9.6 ??CALCIUM?SERUM?(CORRECTED)?(mg/dL) 9.6 9.6 ??CA?125?(O*)?(Unit/mL) 5.0 ? 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 S/p total hysterectomy, bilateral salpingectomy, right ovarian cystectomy and retroperitoneal lymphadenectomy and peritoneal washings (10/27/2021) Completed 6 cycles of adjuv ant carboplatin and Taxol on 05/11/2022. 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 Bilateral breast MRI, benign findings (12/21/2023). Bilateral mammogram screening, left breast negative screening, right breast biopsy recommended, (01/10/2024). Right breast diagnostic mammogram, benign findings, return to routine mammographic surveillance, (01/16/2024). CT chest abdomen and pelvis with contrast showed stable 2 mm pulmonary nodule right lower lobe, no metastatic disease in chest abdomen or pelvis, 02/15/2024. Following up with Dr. Ammy Patino, [employer] oncology and completed bilateral oophorectomy Patient aware that annual breast MRI and annual mammogram are recommended interventions for cancer screening due to PALB2 associated cancers. Colonoscopy screening every 5 years due to MUTYH gene mutations. Ms. Chavis denies any complaints or concerns during today's visit. No clinical evidence of recurrence. Patient is now status post total hysterectomy, bilateral salpingo-oophorectomy, right ovarian cystadenectomy, retroperitoneal lymphadenectomy, peritoneal washing, and 6 cycles of TCE and radiation therapy in 2021. PET CT scan is negative Ora testing is negative Scented to provider who accept patient's insurance for colonoscopy Refer to tertiary level for possible bilateral mastectomy and reconstruction ORDERS: Order # Description [id number] Comprehensive Metabolic Panel - 12 + CBC with Auto Diff [id number] Follow Up 6 Month RETURN TO CLINIC: I reviewed the diagnosis, prognosis, and recommended treatment/procedure options with the patient (and/or their legal guest services representative), including the potential benefits, risks, side effects and alternative therapies. We also discussed the option of no treatment and the possibility of clinical trial participation, if applicable. All questions were addressed, and they demonstrated understanding. They provided informed consent to proceed with the proposed plan of care. BILLING AND COMPLIANCE: I reviewed external records from providers outside my specialty as summarized above. I spent a total of 50 minutes on this patient?s care on the day of their visit excluding time spent related to any billed procedures. This time includes time spent with the patient as well as time spent documenting in the medical record, reviewing patients records and tests, obtaining history, placing orders, communicating with other healthcare professionals, counseling the patient, family or caregiver, and/or care coordination for the diagnoses above. Electronically Signed by: Sylvester Butler MD T: 2:52 PM CC: Onofre?Bindu?, Tamir?Larissa? PCP: Sulma Monet Referring: Sulma Monet This document was completed utilizing speech recognition software. Grammatical errors, random word insertions, pronoun errors, and incomplete sentences are an occasional consequence of this system due to software limitations, ambient noise, and hardware issues. Any formal questions or concerns about the content, text or information contained within the body of this dictation should be directly addressed to the provider for clarification.
== END 2025-06-10 23:59 | disposition home or self-care (01) ==
LOC: SCTC 09:03
PROVIDERS: PCP Internal Medicine; Referring Provider Family Medicine; Visit Provider Radiology Therapeutic Radiology
DX: C54.1 Malignant neoplasm of endometrium (principal); Z90.710 Acquired absence of both cervix and uterus; Z92.21 Personal history of antineoplastic chemotherapy; Z92.3 Personal history of irradiation; Z85.3 Personal history of malignant neoplasm of breast; Z90.722 Acquired absence of ovaries, bilateral; Z15.09 Genetic susceptibility to other malignant neoplasm; R91.1 Solitary pulmonary nodule
CPT/HCPCS: 99212; G0463

== ENCOUNTER 2025-08-06 11:55 | Day surgery (SDC) | payer BC, SELFPAY ==
[2025-08-05 12:45] VITALS: BMI 36.3
[2025-08-06] VITALS (11 sets, daily range): BP systolic 127–164; BP diastolic 79–101; PULSE 62–83; RESP 14–20; TEMP 36.2–36.6; O2SAT 96–100; BMI 38.0
[2025-08-06] MEDS: RINGERS LACTATED 500 ML 500 ML 100 ML IV (13:07)
[2025-08-06] MEDS: fentaNYL CIT INJ 50 mCg/ML AMP 2ML (ASD USE ONLY) IVP (13:10)
[2025-08-06] MEDS: MIDAZOLAM INJ 1 MG/ML VIAL 2 ML (ASD USE ONLY) 2 MG IVP (13:19)
== END 2025-08-06 14:20 | disposition home or self-care (01) ==
PROVIDERS: PCP Internal Medicine; Referring Provider Surgery; Visit Provider Surgery
PROC: 0DBE8ZX Excision of Large Intestine, Via Natural or Artificial Opening Endoscopic, Diagnostic (ICD-10-PCS; CPT 45380; principal; 2025-08-06 13:45)
DX: Z12.11 Encounter for screening for malignant neoplasm of colon (principal); Z80.0 Family history of malignant neoplasm of digestive organs; I10 Essential (primary) hypertension; Z85.42 Personal history of malignant neoplasm of other parts of uterus; Z92.3 Personal history of irradiation; Z92.21 Personal history of antineoplastic chemotherapy; Z79.899 Other long term (current) drug therapy
CPT/HCPCS: 45378; 81025; A4649; J1200; J2250; J3010; J7120